=== PATIENT | female | born 1975 | race Two or more races ===

== ENCOUNTER 2024-09-17 09:50 | Day surgery (SDC) | payer MEDICAID, SELFPAY ==
[2024-09-17] VITALS (7 sets, daily range): BP systolic 118–134; BP diastolic 74–87; PULSE 77–83; RESP 12–17; TEMP 36.2–36.6; O2SAT 95–98; BMI 34.0
--- NOTE | 2024-09-17 10:27 | EKG_ITS ---
[facility] Test Date: 2024-09-17 Pat Name: MAICO SALCEDO Department: Room: - Gender: Female Host[place] Parent: JOANNA : 1975 Requested By: Mingo Barr Order Number: [id number] Reading MD: Mingo Barr Measurements Intervals [place] Rate: 73 P: 30 LA: 167 QRS: 37 QRSD: 98 T: 36 QT: 384 QTc: 425 Interpretive Statements SINUS RHYTHM No previous ECG available for comparison /store/S0/[id number]
[2024-09-17 11:01] LABS: Basophils % (Auto) 0 % (0-2.5); Eosinophils # (Auto) 0.1 Thou/mm3 (0.0-0.5); Eosinophils % (Auto) 2 % (0-10); Hematocrit 39.3 % (36.0-46.0); Hemoglobin 13.1 g/dL (12.0-16.0); Immature Granulocytes % (Auto) 0 % (0-0); Immature Granulocytes Auto 0.01 Thou/mm3 (0.00-0.00); Lymphocytes # (Auto) 2.3 Thou/mm3 (1.0-4.8); Lymphocytes % (Auto) 35 % (10-50); Mean Corpuscular HGB Conc 33.3 g/dl (31.0-37.0); Mean Corpuscular Hemoglobin 28.9 pg (25.0-35.0); Mean Corpuscular Volume 87 fL (80-100); Monocytes # (Auto) 0.3 Thou/mm3 (0.0-0.8); Monocytes % (Auto) 4 % (0-12); Neutrophils # (Auto) 3.9 Thou/mm3 (1.8-7.7); Neutrophils % (Auto) 59 % (37-80); Nucleated Red Blood Cell % 0 /100 WBC (0); Platelet Count 260 Thou/mm3 (140-440); RDW Standard Deviation 39.7 fL (36.4-46.3); Red Blood Count 4.54 Miln/mm3 (4.00-5.20); White Blood Count 6.6 Thou/mm3 (3.6-11.0)
[2024-09-17 11:10] LABS: HCG,Qualitative Serum Negative
[2024-09-17 11:17] LABS: Alanine Aminotransferase 10 U/L (10-49); Albumin, Serum 4.4 gm/dL (3.5-5.0); Albumin/Globulin Ratio 1.6 (1.2-2.2); Alkaline Phosphatase 48 U/L (46-116); Anion Gap 8 (7-16); Aspartate Amino Transferase 32 U/L (0-34); BUN/Creatinine Ratio 13 Ratio (12-20); Bilirubin,Total 0.6 mg/dL (0.3-1.2); Blood Urea Nitrogen 10 mg/dL (9-23); Calcium 9.1 mg/dL (8.3-10.6); Calcium (Corrected) 9.1 mg/dL (8.5-10.1); Carbon Dioxide 26.2 mMol/L (20.0-31.0); Chloride 105 mMol/L (98-107); Creatinine (Component) 0.8 mg/dL (0.6-1.3); Estimated Creatinine Clearance 108.5 mL/min (>60); Globulin 2.7 gm/dL (2.3-3.5); Glucose 92 mg/dL (74-106); Osmolality,Calculated 276 (275-295); Potassium 5.3 mMol/L (3.4-5.1); Sodium 139 mMol/L (136-145); Total Protein 7.1 gm/dL (5.7-8.2); eGFR > 60 See Note
[2024-09-17 12:00] LABS: Prothrombin Time 10.5 Seconds (9.0-12.2)
--- NOTE | 2024-09-17 14:55 | ESOP_ITS ---
Date of Procedure 09/17/24 Pre Op Diagnosis 1. Right shoulder impingement syndrome 2. Right rotator cuff tear 3 lipoma supraspinatus fossa right shoulder Post Op Diagnosis Same Procedure 1. Excision lateral end of the clavicle 2. Excision coracoacromial ligament 3. Acromioplasty 4. Repair of rotator cuff 5. Manipulation under anesthesia 6. Excision of lipoma from supraspinatus. (back of shoulder) Findings Refer dictation Procedure Description The patient was given general endotracheal anesthesia. Once satisfactory anesth esia was achieved patient was put in about 45?? sitting position with sandbag underneath the shoulder blade. The part was thoroughly prepped and draped. #1. Repair of rotator cuff with Nicci procedure A skin incision was made at the AC joint extending proximally towards the neck for a half inches and distally towards the arm for about couple of inches. Deeper dissection was carried out. Bleeding vessels were electrocoagulated as and when encountered. The soft tissue was reflected. Following that AC joint was exposed and AC joint was exposed. It revealed significant osteoarthritic changes. The deltoid muscle was reflected from the anterior and lateral aspect of the acromial process. It revealed 2 to 3 mm big osteophytes on the anterior aspect and 1 to 2 mm osteophytes on the lateral aspect. Following that a periosteal elevator was placed underneath the lateral end of the clavicle and lateral 3-4 mm was excised. The coracoacromial ligament was removed. With the help of saw 2 mm of anterior aspect of the acromial process and 2 mm from the lateral aspect of the acromial process along with osteophytes was excised. With the help of curved osteotome the undersurface of the Acromial processes was chiseled out. That made more room between the superior surface of the head of the humerus and undersurface of the acromial process. Following that the rotator cuff was inspected. It revealed small oval tear, however most of the fibers were attached to the greater tuberosity. Wound was irrigated with antibiotic solution every 4-5 minutes. The left shoulder was manipulated at this time. Full range of abduction and forward flexion was achieved. The rotator cuff tear was repaired with 2-0 Vicryl. 2 drill holes were made on the acromial process and deltoid muscle was stitched back to it. Some reinforcement sutures were placed. The subcutaneous tissue was then closed with the help of 2-0 Vicryl and 3-0 Vicryl in layers. Subcuticular absorbable suture was used to close the skin incision. 2. Excision mass from the back of right shoulder The mass was located in the supraspinatus fossa. It was about 5 to 6 inches long and 2 inches in width. Another skin incision was made over the most prominent part of the mass extending laterally and medially. It was placed horizontally. The skin was raised as a flap. A big lipoma was encountered which was excised in total and was sent for histopathological examination. Some cyst or lipoma was present which was excised as well. Wound was irrigated with antibiotic solution every 4 to 5 minutes Following that the subcu tissue was closed in layers with the help of 2-0 Vicryl. The skin was closed in subcuticular fashion. About 20 mL of quarter percent Marcaine was injected at the skin incision site. After cleaning the wound with hydrogen peroxide solution and sterile dressing was applied at each site. Patient was taken to the recovery room in good condition. Estimated blood loss 20 mL. Prognosis in this case is good. Anesthesia GETA and other Pathology / specimen None Estimated Blood Loss 20 Surgeon Mingo Smith MD Surgical Staff Operation Date: 09/17/24 14:30 Case Staff Anesthesiologist: Yordan Stevens RNhard metals hand engraver: Sara Lowry
--- NOTE | 2024-09-17 15:15 | SUR.PHASEI ---
1515: Pt. wakes to name then drifts back to sleep, vitals stable, breathing unlabored, dressing to right shoulder CDI, no active bleed noted, report received from MD Stevens and Master PHELPS.
[2024-09-17] MEDS: ONDANSETRON INJ 2 MG/ML INJ 2 ML 4 MG IVP (15:28)
--- NOTE | 2024-09-17 15:49 | PD.ANESPROG ---
Documentation for date of: 09/17/24 ANESTHESIA NOTE: Patient had general LMA anesthesia and R interscalene nerve block for R rotator cuff repair and R shoulder lipoma excision. She did well intra-op and is currently in PACU doing well. Yordan Stevens MD Anesthesia Progress Note Progress Note Most recent Vital Signs: Last Vital Signs Temp 97.1 F 09/17/24 15:30 Pulse 83 09/17/24 15:30 Resp 16 09/17/24 15:30 BP 130/79 09/17/24 15:30 Pulse Ox 98 09/17/24 15:30
--- NOTE | 2024-09-17 16:14 | ESHP_ITS ---
RE: MAICO SALCEDO : 1975 DATE OF ADMISSION: 09/17/2024 HISTORY OF PRESENT ILLNESS: The patient came to my office on 09/16/2024 with history of pain in the right shoulder. Besides that she has mass on the back of the right shoulder. HISTORY OF PRESENT COMPLAINT: The patient complained about pain in the right shoulder going on for a long period of time. Intensity of pain is 7-8/10. Range of motion is severely restricted. The patient is unable to sleep. The quality of life and activity of daily living is affected. The patient is unable to raise her arm above the shoulder level. Beside that there is a big mass in the back of the right shoulder. It is basically placed in the supraspinatus fossa. It bothers her a lot and the patient wanted to be taken out. PAST MEDICAL HISTORY: No history of diabetes mellitus, high blood pressure, asthma, seizure, chest pain, myocardial infarction, bleeding disorder, or stroke. PAST SURGICAL HISTORY: None. DRUG HISTORY: Pain medication on and off. ALLERGIES: NIL KNOWN. FAMILY HISTORY AND SOCIAL HISTORY: The patient denies smoking, drinking, is not working presently. PHYSICAL EXAMINATION: GENERAL: Normal built lady. VITAL SIGNS: Pulse 86 per minute. Blood pressure 132/82. NECK: Soft, supple. No masses felt. Trachea is centrally placed. CARDIOVASCULAR SYSTEM: First and second heart sounds are normal. No murmur heard. LUNGS: Bilateral vesicular breath sounds. CHEST: Clear. ABDOMEN: Soft. No masses felt. Bowel sounds present. BREASTS: Not indicated in this case. EXTREMITIES: Right shoulder examination revealed 1+ tenderness at AC joint. Active range of motion 0-80 degrees of abduction, 0-80 degrees of forward flexion. Internal rotation is severely restricted and painful. Impingement test, Maribell test is positive. Examination in the supraspinatus fossa revealed a mass, which is about 4-5 inches long and 1-2 inches wide. It is soft and mobile. Clinically, it is lipoma. DIAGNOSTIC DATA: MRI scan of the right shoulder revealed torn rotator cuff, DJD at AC joint, and bursitis. ASSESSMENT AND PLAN: Diagnosis and prognosis was explained to the patient and her family in detail. I explained that I can do open rotator cuff repair surgery with the Nicci procedure. Detailed discussion took place with the help of shoulder model and shoulder posters. I also explained that there are some surgeons who can do arthroscopic surgery, but the patient wanted to proceed with me. Also, the patient wanted me to take out the lipoma from the back of the shoulder. I explained that the patient may end up with the biggest scar and she is okay with that. Accordingly, surgery is booked for 09/17/2024. Risks with anesthesia was explained and that includes, but not limited to reaction to anesthetic agents, cardiac arrest and rarely it might be fatal. Risks of surgery include infection and if that happens, the patient may need further surgical procedure. No guarantee is given regarding functional outcome and/or pain relief and the patient is fully aware of that. Indeed, physical therapy is a very important component for successful outcome of the procedure and the patient is encouraged to take active part in physical therapy. Surgery booked for 09/17/2024. DT: 15:10:12 TT: 16:14:00 Ref: [id number] - TID: [id number]
--- NOTE | 2024-09-17 16:15 | SUR.PHASEII ---
1615: Pt. AAOx4, vitals stable, breathing unlabored, no complaint of pain or nausea, dressing to right shoulder CDI, no active bleed noted, pt. tolerated sips of water well, pt. ambulated to wheelchair with steady gait and no assist, no complications. Gave discharge instruction to the pt. and her ride using home help aide both verbalized understanding, and had no further questions. Pt. left with all personal belongings.
== END 2024-09-17 16:15 | disposition home or self-care (01) ==
PROVIDERS: PCP Nurse Practitioner Primary Care; Referring Provider Orthopaedic Surgery; Visit Provider Orthopaedic Surgery
PROC: (CPT 23412; principal; 2024-09-17 14:30)
PROC: (CPT 23412; 2024-09-17 14:30)
DX: M75.101 Unspecified rotator cuff tear or rupture of right shoulder, not specified as traumatic (principal); M75.41 Impingement syndrome of right shoulder; D17.21 Benign lipomatous neoplasm of skin and subcutaneous tissue of right arm; Z01.810 Encounter for preprocedural cardiovascular examination
CPT/HCPCS: 23412; 36415; 80053; 84703; 85025; 85610; 85730; 93005; A4217; A4649; J0690; J1100; J2250; J2405; J2704; J2765; J2795; J3010; J3490